=== PATIENT | male | born 1990 | race Caucasian/White ===

== ENCOUNTER 2019-10-25 01:49 | Emergency (ER) | payer BC ==
[~2019-10-25] VITALS: Ht 190.5 cm; Wt 104.5 kg
[2019-10-25] MEDS ORDERED: proparacaine 0.5% ophthalmic drops 15ml EACHEYE ONE (03:10)
[2019-10-25] MEDS ORDERED: ciprofloxacin 0.3% 2.5ml ophthalmic solution RIGHTEYE ONE (03:10)
[2019-10-25] MEDS ORDERED: CIPR2.5D18 RIGHTEYE (03:25)
[2019-10-25 03:38] VITALS: BP 150/80
== END 2019-10-25 03:41 | disposition home or self-care (01) ==
LOC: ER 01:50
DX: S05.31XA Ocular laceration without prolapse or loss of intraocular tissue, right eye, initial encounter (principal); Z72.89 Other problems related to lifestyle; Z98.890 Other specified postprocedural states; Z79.899 Other long term (current) drug therapy; W22.8XXA Striking against or struck by other objects, initial encounter; Y93.89 Activity, other specified; Y92.89 Other specified places as the place of occurrence of the external cause; Y99.8 Other external cause status
CPT/HCPCS: 99283